=== PATIENT | female | born 1955 | race Caucasian/White ===

== ENCOUNTER 2016-06-26 16:56 | Emergency (ER) | payer OTHER ==
[2016-06-26] MEDS ORDERED: IPRATROPIUM/ALBUTEROL 3 ML DEYVIAL IH ONE (17:29)
--- NOTE | 2016-06-26 17:34 | UCPHY ---
H & P Time Seen by Provider: 06/26/16 17:20 Patient Type: Established HPI/ROS: CHIEF COMPLAINT: Cough and fever HISTORY OF PRESENT ILLNESS: 61-year-old female presents reporting a fever as high as 101 with a cough for the last 3 days. She has a history of asthma for which she uses Singulair, Qvar, Nasacort spray. Patient used her albuterol nebulizer once 2 days ago and once today with little effect on her coughing. She has not had any sputum production. Some nasal congestion. Denies runny nose, ear pain, sore throat. Slight nausea and queasy stomach, but no vomiting or diarrhea. No chest pain. No palpitations. No urinary complaints. REVIEW OF SYSTEMS: Aside from elements discussed in the HPI, a comprehensive 10-point review of systems was reviewed and is negative. PAST MEDICAL HISTORY: Asthma. Multiple allergies to antibiotics. 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 She did receive an influenza vaccination this year. VITAL SIGNS: see nurse's notes. GENERAL: Well-developed, well-nourished, in no acute distress. Looks well. HEENT: Atraumatic Eyes: PERRL, EOMI, no conjunctival injection. Ears: TM clear bilaterally, although left TM is partially occluded with cerumen. Nose: No discharge. Mouth: moist mucous membranes. Pharynx: no erythema, no exudates, no swelling, no abscess. Uvula is midline. NECK: Supple, no adenopathy, no meningismus, no tenderness. Negative Kernig's and Brudzinski's. LUNGS: Clear to auscultation bilaterally, no wheezes, rhonchi or rales. CARDIAC: Regular rate and rhythm, no rubs, murmurs or gallops. ABDOMEN: Soft, nontender, bowel sounds normal. BACK: No CVA tenderness. EXTREMITIES: Normal, no edema, FROM. NEURO: Alert and oriented, grossly nonfocal. SKIN: Warm and dry, no rash. PSYCHIATRIC: Normal mentation, no agitation. Smoking Status: Never smoked Constitutional: Initial Vital Signs Temperature (C) 37.1 C 06/26/16 17:15 Heart Rate 96 06/26/16 17:15 Respiratory Rate 20 06/26/16 17:15 Blood Pressure 165/100 H 06/26/16 17:15 O2 Sat (%) 96 06/26/16 17:15 O2 Delivery Mode Room Air Allergies/Adverse Reactions: acyclovir [Acyclovir] Allergy (Verified 06/26/16 17:13) Rash ampicillin [Ampicillin] Allergy (Verified 06/26/16 17:13) Rash azithromycin [From Zithromax] Allergy (Verified 06/26/16 17:13) Rash ceftazidime (anhydrous) [ceftazidime] Allergy (Verified 06/26/16 17:13) ciprofloxacin [From Cipro] Allergy (Verified 06/26/16 17:13) Rash ciprofloxacin HCl [From Cipro] Allergy (Verified 06/26/16 17:13) Rash erythromycin lactobionate [From Erythrocin] Allergy (Verified 06/26/16 17:13) Rash floxacillin [Floxacillin] Allergy (Verified 06/26/16 17:13) Rash latex [Latex] Allergy (Verified 06/26/16 17:13) Rash Penicillins Allergy (Verified 06/26/16 17:13) Rash Sulfa (Sulfonamide Antibiotics) Allergy (Verified 03/04/16 12:55) Rash Home Medications: Medication Instructions Recorded Albuterol 06/21/13 Qvar 40 (RX) 06/20/14 Nasacort 07/17/15 Singulair 07/17/15 HYOSCYAMINE SULFATE [LEVSIN-SL] 0.125 - 0.25 mg SL Q6 PRN #20 03/04/16 tab.subl Pantoprazole Sodium [Protonix 40mg 40 mg PO DAILY #30 tab 03/04/16 (*)] Doxycycline Hyclate 100 mg PO BID #7 tab 06/26/16 predniSONE 40 - 60 mg PO DAILY #9 tab 06/26/16 predniSONE 40 mg PO DAILY #6 tab 06/26/16 Medical Decision Making - Diagnostics Imaging: Xray: Chest x-ray was obtained. I viewed the images myself on the PACS system. My interpretation of the images is: Consistent with bronchitis, query air bronchogram in the right lower lobe. The radiology interpretation is: No infiltrate. I discussed the results with the patient. ED Course/Re-evaluation: 61-year-old female with history of asthma, presenting with fever and cough. Lungs are clear on my examination. Patient received an albuterol neb treatment to see if it would improve her symptoms of shortness of breath. Patient reports minimal improvement with the albuterol. Will be placed on doxycycline as well as a prednisone burst. Follow up with her primary care physician. Differential Diagnosis: Differential diagnosis for the patient's cough was considered including but not limited to viral versus bacterial bronchitis, asthma, COPD, pulmonary emboli, upper respiratory infection, lower respiratory infection, and bronchospasm. - Data Points Medications Given: Discontinued Medications Albuterol/Ipratropium (Duoneb) 3 ml IH EDNOW ONE Stop: 06/26/16 17:30 Last Admin: 06/26/16 17:49 Dose: 3 ml Prednisone (Prednisone) 60 mg PO EDNOW ONE Stop: 06/26/16 18:13 Last Admin: 06/26/16 18:27 Dose: 60 mg Departure - Departure Disposition: Home, Routine, Self-Care Clinical Impression: Bronchitis Fever Qualifiers: Fever type: unspecified Qualified Code(s): R50.9 - Fever, unspecified Condition: Good Instructions: Acute Bronchitis (ED) Additional Instructions: Take antibiotic as directed. Doxycycline 100 mg by mouth 2 times a day for 7 days. Chest x-ray is consistent with bronchitis. No pneumonia is noted. Take the prednisone as directed. 60 mg on day 1, then 40 mg on days 2, 3, and 4. Please follow up with your primary care physician if you're not improving as expected. Referrals: Derrek Gutierrez MD [Primary Care Provider] - As per Instructions Prescriptions: Doxycycline Hyclate 100 mg PO BID #7 tab predniSONE 40 mg PO DAILY #6 tab predniSONE 40 - 60 mg PO DAILY #9 tab - PQRS PQRS Measurement: Not applicable
[2016-06-26] MEDS ORDERED: predniSONE 20 MG TAB PO ONE (18:12)
[2016-06-26 21:55] VITALS: BP 151/98; PULSE 87; RESP 18; TEMP 97.9; O2SAT 95
== END 2016-06-26 19:40 | disposition home or self-care (01) ==
LOC: CED 16:56
DX: J40 Bronchitis, not specified as acute or chronic (principal)
CPT/HCPCS: 71020-PO; 99214-PO; G0463-PO

== ENCOUNTER → 2016-07-20 | Outpatient (CLI) | payer OTHER | LOC: FIMAGING 14:08 | DX: Z12.31 Encounter for screening mammogram for malignant neoplasm of breast (principal) | CPT/HCPCS: G0202 ==

== ENCOUNTER → 2016-08-31 | Outpatient (CLI) | payer OTHER | LOC: BRMIMAGING 09:03 | PROVIDERS: ATTEND Family Medicine | DX: Z13.820 Encounter for screening for osteoporosis (principal); M85.80 Other specified disorders of bone density and structure, unspecified site ==

== ENCOUNTER → 2017-09-03 | Outpatient (CLI) | payer OTHER | LOC: FIMAGING 15:48 | PROVIDERS: ATTEND Family Medicine | DX: Z12.31 Encounter for screening mammogram for malignant neoplasm of breast (principal) ==

== ENCOUNTER → 2018-02-03 | Outpatient (CLI) | payer OTHER | LOC: CIMAGING 16:58 → EDSTATUS 17:01 → CIMAGING 17:18 | PROVIDERS: ATTEND Family Medicine | DX: S92.422A Displaced fracture of distal phalanx of left great toe, initial encounter for closed fracture (principal); S92.522A Displaced fracture of middle phalanx of left lesser toe(s), initial encounter for closed fracture | CPT/HCPCS: 73660-PO ==

== ENCOUNTER → 2018-08-29 | Outpatient (CLI) | payer OTHER | LOC: BRMIMAGING 08:19 | PROVIDERS: ATTEND Family Medicine | DX: M85.89 Other specified disorders of bone density and structure, multiple sites (principal) ==

== ENCOUNTER → 2018-09-05 | Outpatient (CLI) | payer OTHER | LOC: FIMAGING 09:04 ==